=== PATIENT | male | born 1955 | race Caucasian/White ===

== ENCOUNTER → 2020-06-27 15:36 | Outpatient (CLI) | payer MEDICARE, OTHER, SELFPAY ==
[2020-06-27] MEDS: COVID-19 VACC, Ad26(JANSSEN)/PF 0.5 ML IM (16:11)
== END ==
PROVIDERS: Visit Provider Internal Medicine
DX: Z23 Encounter for immunization (principal)
CPT/HCPCS: 0031A; 91303

== ENCOUNTER → 2023-01-29 07:55 | Outpatient (CLI) | payer MEDICARE, OTHER, SELFPAY | PROVIDERS: Visit Provider Physician Assistant | DX: M54.50 Low back pain, unspecified (principal) | CPT/HCPCS: 87086 ==

== ENCOUNTER → 2023-02-06 08:09 | Outpatient (CLI) | payer MEDICARE, OTHER, SELFPAY ==
[2023-02-06 08:53] LABS: Add Manual Diff / Slide Review NO; Basophils Absolute Auto 100 /uL (0-100); Basophils Percent Auto 0.9 % (0-2); Eosinophils Absolute Auto 200 /uL (0-450); Eosinophils Percent Auto 2.6 % (2-4); Hematocrit 43.1 % (41-53); Hemoglobin 14.8 g/dL (13.5-17.5); Lymphocytes Absolute Auto 1600 /uL (1100-4500); Lymphocytes Percent Auto 21.2 % (25-40); Mean Corpuscular HGB Conc 34.3 % (30-36); Mean Corpuscular Hemoglobin 29.5 PG (26-34); Monocytes Absolute Auto 500 /uL (0-900); Monocytes Percent Auto 6.3 % (3-14); Neutrophils Absolute Auto 5200 /uL (1500-7000); Platelet Count 263 X10^3/uL (150-400); Red Blood Cell Count 5.02 X10^6/uL (4.5-5.9); Red Cell Distribution Width 13.4 % (11.6-14.8); White Blood Cell Count 7.6 X10^3/uL (4.5-11.0)
[2023-02-06 09:13] LABS: Alanine Aminotransferase 27 IU/L (<50); Albumin 4.5 g/dL (3.5-5.0); Albumin Globulin Ratio 1.5 (1.0-2.8); Alkaline Phosphatase 92 U/L (38-126); Aspartate Aminotransferase 24 IU/L (17-59); BUN Creatinine Ratio 18.8 (6-22); Bilirubin Total 1.7 mg/dL (0.2-1.3); Blood Urea Nitrogen 16 mg/dL (9-20); Calcium 9.7 mg/dL (8.4-10.2); Carbon Dioxide 26 mmol/L (22-32); Chloride 102 mmol/L (98-107); Cholesterol 181 mg/dL (140-199); Estimated Glomerular Filt Rate > 60 mL/min (>60); Glucose 120 mg/dL (80-110); HDL Cholesterol 58 mg/dL (40-60); HEMOLYSIS < 15 (0-50); LDL Cholesterol Calculated 103 mg/dL (<100); Potassium 4.5 mmol/L (3.4-5.1); Sodium 138 mmol/L (137-145); Total Protein 7.5 g/dL (6.3-8.2); Triglycerides 101 mg/dL (35-150)
[2023-02-06 09:15] LABS: Hemoglobin A1C% w Est Avg Glu 6.1 % (4.0-6.0)
[2023-02-06 09:49] LABS: Thyroid Stimulating Hormone 0.528 uIU/mL (0.47-4.68)
[2023-02-06 10:27] LABS: Appearance Urine UA CLEAR; Bilirubin Urine UA NEGATIVE (NEGATIVE); Glucose Urine UA NEGATIVE (Negative); Ketones Urine UA NEGATIVE (NEGATIVE); Leukocyte Esterase Urine UA NEGATIVE (NEGATIVE); Nitrite Urine UA NEGATIVE (Negative); Occult Blood Urine UA TRACE-INTACT (Negative); Protein Urine UA NEGATIVE (Negative); pH Urine UA 6.5 (4.5-8.0)
[2023-02-06 10:44] LABS: Bacteria Urine Occasional (0-1); Color Urine UA YELLOW; Culture Indicated Urine Cult Not Indicated; Mucus Urine 1+ (Negative); RBC Urine None Seen (0-5/HPF); Squamous Epithelial Cell Urine None Seen (0-5/HPF); WBC Urine 0-1/HPF (0-5/HPF)
[2023-02-07 16:15] LABS: Hep C Virus Ab w/Reflex Quant NEGATIVE s/c (NEGATIVE)
== END ==
PROVIDERS: PCP Family Medicine; Referring Provider Family Medicine; Visit Provider Family Medicine
DX: E05.00 Thyrotoxicosis with diffuse goiter without thyrotoxic crisis or storm (principal); Z00.00 Encounter for general adult medical examination without abnormal findings; Z85.850 Personal history of malignant neoplasm of thyroid; Z13.1 Encounter for screening for diabetes mellitus; Z11.59 Encounter for screening for other viral diseases; M54.9 Dorsalgia, unspecified; Z13.6 Encounter for screening for cardiovascular disorders; R03.0 Elevated blood-pressure reading, without diagnosis of hypertension; R31.9 Hematuria, unspecified; R73.03 Prediabetes
CPT/HCPCS: 80053; 80061; 81001; 83036; 84443; 85025; 86803

== ENCOUNTER → 2023-02-08 06:35 | Outpatient (CLI) | payer MEDICARE, OTHER, SELFPAY ==
--- NOTE | 2023-02-08 06:37 | DI.RAD.S_ITS ---
PROCEDURE: XR KUB INDICATIONS: R/O kidney stone TECHNIQUE: One view of the abdomen acquired. COMPARISON: [facility], , US ABDOMEN COMPLETE, 02/08/2023, 6:44. FINDINGS: Surgical changes and devices: None. Bowel: Scattered small bowel and colonic gas. No dilated loops of bowel seen. Soft tissues: No kidney stones identified. No suspicious abdominal calcifications. Visualized solid organ contours appear normal in size. Bones: No suspicious bony lesions. IMPRESSION: No kidney stone identified. If clinically indicated consider CT KUB for further evaluation. Dictated by: Gabriel Egan M.D. on 02/08/2023 at 8:57 Approved by: Gabriel Egan M.D. on 02/08/2023 at 8:58
--- NOTE | 2023-02-08 06:37 | DI.US.S_ITS ---
PROCEDURE: US ABDOMEN COMPLETE INDICATIONS: r/o Kidney stone, AAA, Gallbladder TECHNIQUE: Real-time scanning was performed of the abdominal and retroperitoneal organs, with image documentation. COMPARISON: [facility], CR, XR KUB, 02/08/2023, 6:40. FINDINGS: Liver: Liver is normal in size and homogeneous in echotexture. Hepatic cyst adjacent to the gallbladder measuring 0.8 cm. Gallbladder: Nondilated. Multiple gallstones. Possible gallbladder polyp on the nondependent gallbladder wall measuring 0.4 cm. Normal gallbladder wall thickness. No pericholecystic fluid. Negative sonographic Romero's sign. Biliary ducts: Intrahepatic bile ducts are non-dilated. Extrahepatic bile duct caliber is not well seen due to overlying bowel gas. Pancreas: Not well seen due to overlying bowel gas. Spleen: Spleen is normal in size and homogeneous in echotexture. Measures 10.3 cm. Kidneys: Kidneys are normal in size and echotexture. Right kidney measures 11.6 cm long; left kidney measures 11.2 cm long. No hydronephrosis or nephrolithiasis. No solid masses. Aorta: Visualized aorta is normal in caliber at less than 3 cm. Iliacs: Proximal common iliac arteries are normal in caliber at less than 2.5 cm. IVC: Intrahepatic inferior vena cava is patent. Miscellaneous: No free abdominal fluid. IMPRESSION: Evaluation is somewhat limited due to bowel gas. The CBD and pancreas are not well seen. 1. No acute cholecystitis. Multiple gallstones. Possible gallbladder polyp measuring 0.4 cm. No follow-up imaging is required for this possible small polyp. 2. No hydronephrosis. No kidney stones identified. 3. No abdominal aortic aneurysm. Dictated by: Gabriel Egan M.D. on 02/08/2023 at 9:06 Approved by: Gabriel Egan M.D. on 02/08/2023 at 9:09
== END ==
PROVIDERS: PCP Family Medicine; Referring Provider Family Medicine; Visit Provider Family Medicine
DX: N20.0 Calculus of kidney (principal); R31.9 Hematuria, unspecified; K80.20 Calculus of gallbladder without cholecystitis without obstruction; M54.9 Dorsalgia, unspecified
CPT/HCPCS: 74018; 76700

== ENCOUNTER → 2023-02-26 08:41 | Outpatient (CLI) | payer MEDICARE, OTHER, SELFPAY ==
[2023-03-05 12:30] LABS: Ca oxalate monohydr 100 % (.); Size 4x4 mm (.)
== END ==
PROVIDERS: PCP Family Medicine; Visit Provider Family Medicine
DX: N20.0 Calculus of kidney (principal); M54.9 Dorsalgia, unspecified
CPT/HCPCS: 82365

== ENCOUNTER → 2023-02-26 08:52 | Outpatient (CLI) | payer MEDICARE, OTHER, SELFPAY ==
[2023-02-26 10:38] LABS: Appearance Urine UA CLEAR; Bilirubin Urine UA NEGATIVE (NEGATIVE); Color Urine UA YELLOW; Glucose Urine UA NEGATIVE (Negative); Ketones Urine UA NEGATIVE (NEGATIVE); Leukocyte Esterase Urine UA NEGATIVE (NEGATIVE); Nitrite Urine UA NEGATIVE (Negative); Occult Blood Urine UA NEGATIVE (Negative); Protein Urine UA NEGATIVE (Negative); Urobilinogen Urine UA 0.2 E.U./dL (0.2)
[2023-02-26 10:56] LABS: Bacteria Urine None Seen; Culture Indicated Urine Cult Not Indicated; RBC Urine None Seen (0-5/HPF); Squamous Epithelial Cell Urine 0-1 /HPF (0-5/HPF); WBC Urine 0-1/HPF (0-5/HPF)
== END ==
PROVIDERS: PCP Family Medicine; Referring Provider Family Medicine; Visit Provider Family Medicine
DX: R73.03 Prediabetes (principal); N20.0 Calculus of kidney; M54.9 Dorsalgia, unspecified
CPT/HCPCS: 81001; 82365

== ENCOUNTER → 2023-03-16 11:41 | Outpatient (CLI) | payer MEDICARE, OTHER, SELFPAY ==
--- NOTE | 2023-03-16 11:43 | DI.CT.S_ITS ---
PROCEDURE: CT ABDOMEN PELVIS WO CON INDICATIONS: R side back pain, confirmed kidney stone disease TECHNIQUE: Axial sections were acquired from the lung bases to the pubic symphysis. Coronal and sagittal reformats were performed. For radiation dose reduction, the following was used: automated exposure control, adjustment of mA and/or kV according to patient size. COMPARISON: None. FINDINGS: Image quality: Excellent. Lung bases: Unremarkable. Heart: No significant findings. URINARY: Right Kidney: No stones or hydronephrosis. Right Ureter: No hydroureter. Left Kidney: A 2 mm calculus is present in the midpole of the left kidney. Left Ureter: No hydroureter. Bladder: Normal wall thickness. No stones. ABDOMEN: Liver: No contour-deforming solid mass. Gallbladder: Multiple subcentimeter calcified stones are present in the gallbladder fundus. No gallbladder wall thickening or pericholecystic fluid. Biliary ducts: No biliary dilation. Pancreas: No ductal dilation. Spleen: Size is within normal limits. Adrenal Glands: No adrenal nodules. Stomach and Bowel: Normal colonic caliber, without significant wall thickening. There are scattered sigmoid diverticula. No evidence for diverticulitis. The appendix is thin walled and gas filled. Peritoneum: No abnormal intraperitoneal fluid. No free air. Ventral Wall: No hernia. Abdominal Nodes: No enlarged retroperitoneal or mesenteric lymph nodes. Vessels: Aorta and inferior vena cava are normal in size. There are scattered atheromatous calcifications throughout the aorta and iliac arteries bilaterally. PELVIS: Pelvic Organs: Unremarkable. Pelvic Nodes: Unremarkable. Miscellaneous: No inguinal hernias are seen. Bones: Unremarkable. IMPRESSION: 1. Nonobstructing left nephrolithiasis. 2. No hydronephrosis, hydroureter, or ureterolithiasis. 3. No acute intra-abdominal findings. Normal appendix. Diverticulosis. No acute diverticulitis. Dictated by: Ting Garcia M.D. on 03/17/2023 at 19:04 Approved by: Ting Garcia M.D. on 03/17/2023 at 19:07
== END ==
PROVIDERS: PCP Family Medicine; Referring Provider Family Medicine; Visit Provider Family Medicine
DX: N20.0 Calculus of kidney (principal); M54.9 Dorsalgia, unspecified; K57.30 Diverticulosis of large intestine without perforation or abscess without bleeding
CPT/HCPCS: 74176

== ENCOUNTER → 2023-07-25 06:41 | Outpatient (CLI) | payer MEDICARE, OTHER, SELFPAY ==
--- NOTE | 2023-07-25 06:42 | DI.US.S_ITS ---
PROCEDURE: US ABD AORTA ANEURYSM SCREEN INDICATIONS: Treat and Eval TECHNIQUE: Real time scanning was performed of the aorta and iliac arteries, with image documentation. COMPARISON: [facility], CT, CT ABDOMEN PELVIS WO CON, 03/16/2023, 11:58. FINDINGS: Aorta: Proximal aortic diameter not well seen secondary to bowel gas. Mid-aorta measures 1.6 cm. Distal aortic diameter is 1.3 cm. Scattered atherosclerotic plaque. Iliac arteries: Right common iliac artery measures 1.1 cm. Left common iliac artery measures 0.9 cm. IMPRESSION: 1. Proximal abdominal aorta is not well seen secondary to bowel gas. 2. Mid and abdominal aorta are normal in caliber. 3. Bilateral common iliac arteries are normal in caliber, where visualized. Vascular incidental findings followup recommendations: ACR White Paper AAA imaging followup intervals: AAA defined as 3.0 cm or more luminal diameter. * 2.5-2.9 cm (ectasia): 5 year followup. * 3.0-3.4 cm: 3 year followup. * 3.5-3.9 cm: 3 year followup. * 4.0-4.4 cm: 1 year followup. * 4.5-4.9 cm: 6 month followup. Consider surgery/endovascular Rx. * 5.0-5.5 cm: 3-6 month followup. Consider surgery/endovascular Rx. Dictated by: Francisco Dubose M.D. on 07/25/2023 at 9:41 Approved by: Francisco Dubose M.D. on 07/25/2023 at 9:44
== END ==
PROVIDERS: PCP Family Medicine; Referring Provider Family Medicine; Visit Provider Family Medicine
DX: Z87.891 Personal history of nicotine dependence (principal); Z13.6 Encounter for screening for cardiovascular disorders
CPT/HCPCS: 76706

== ENCOUNTER → 2024-01-03 09:59 | Outpatient (CLI) | payer MEDICARE, OTHER, SELFPAY ==
[2024-01-03 10:38] LABS: Add Manual Diff / Slide Review NO; Basophils Absolute Auto 0 /uL (0-100); Basophils Percent Auto 0.6 % (0-2); Eosinophils Absolute Auto 200 /uL (0-450); Eosinophils Percent Auto 2.4 % (2-4); Hematocrit 43.4 % (41-53); Hemoglobin 14.8 g/dL (13.5-17.5); Lymphocytes Absolute Auto 1600 /uL (1100-4500); Lymphocytes Percent Auto 21.3 % (25-40); Mean Corpuscular Hemoglobin 30.1 PG (26-34); Mean Corpuscular Volume 88.5 fL (80-100); Monocytes Absolute Auto 600 /uL (0-900); Monocytes Percent Auto 7.4 % (3-14); Neutrophils Absolute Auto 5100 /uL (1500-7000); Neutrophils Percent Auto 68.3 % (50-75); Platelet Count 285 X10^3/uL (150-400); Red Blood Cell Count 4.91 X10^6/uL (4.5-5.9); Red Cell Distribution Width 13.6 % (11.6-14.8); White Blood Cell Count 7.5 X10^3/uL (4.5-11.0)
[2024-01-03 10:56] LABS: Alanine Aminotransferase 35 IU/L (<50); Albumin 4.3 g/dL (3.5-5.0); Albumin Globulin Ratio 1.5 (1.0-2.8); Alkaline Phosphatase 97 U/L (38-126); Aspartate Aminotransferase 31 IU/L (17-59); BUN Creatinine Ratio 17.2 (6-22); Bilirubin Total 0.9 mg/dL (0.2-1.3); Blood Urea Nitrogen 15 mg/dL (9-20); Calcium 9.2 mg/dL (8.4-10.2); Carbon Dioxide 28 mmol/L (22-32); Chloride 106 mmol/L (98-107); Estimated Glomerular Filt Rate > 60 mL/min (>60); Globulin 2.8 g/dL (1.7-4.1); Glucose 146 mg/dL (80-110); HEMOLYSIS < 15 (0-50); Potassium 4.9 mmol/L (3.4-5.1); Sodium 141 mmol/L (137-145); Total Protein 7.1 g/dL (6.3-8.2)
[2024-01-03 11:26] LABS: Prostate Specific Antigen Scrn 4.31 ng/mL (0.1-4.0)
== END ==
PROVIDERS: PCP Family Medicine; Referring Provider Family Medicine; Visit Provider Family Medicine
DX: R03.0 Elevated blood-pressure reading, without diagnosis of hypertension (principal); R73.03 Prediabetes; Z12.5 Encounter for screening for malignant neoplasm of prostate
CPT/HCPCS: 36415; 80053; 83036; 85025; G0103

== ENCOUNTER → 2024-06-14 09:12 | Outpatient (CLI) | payer MEDICARE, OTHER, SELFPAY ==
[2024-06-14 09:53] LABS: Influenza A - CEPHEID Flu A NEGATIVE (NEGATIVE); Influenza B - CEPHEID Flu B NEGATIVE (NEGATIVE); Respiratory Syncytial Virus Negative (Negative)
[2024-06-14 10:11] LABS: COVID-19 CEPHEID 4-PLEX PCR Negative (Negative)
== END ==
PROVIDERS: PCP Family Medicine; Visit Provider Physician Assistant Surgical
DX: R05.1 Acute cough (principal)
CPT/HCPCS: 0241U

== ENCOUNTER → 2024-06-14 09:33 | Outpatient (CLI) | payer MEDICARE, OTHER, SELFPAY ==
--- NOTE | 2024-06-14 09:35 | DI.RAD.S_ITS ---
PROCEDURE: XR CHEST 2V INDICATIONS: Cough, SOB TECHNIQUE: 2 views of the chest were acquired. COMPARISON: None. FINDINGS: Surgical changes and devices: None. Lungs and pleura: Lungs are clear. No pleural effusions or pneumothorax. But like atelectasis or scarring in the right Mediastinum: Mediastinal contours are normal. Heart size is normal. Bones and chest wall: No suspicious bony abnormalities. Soft tissues appear unremarkable. IMPRESSION: No acute cardiopulmonary abnormality is seen. Approved by: Rakan Borden M.D. on 06/14/2024 at 9:29
== END ==
PROVIDERS: PCP Family Medicine; Referring Provider Physician Assistant Surgical; Visit Provider Physician Assistant Surgical
DX: R05.1 Acute cough (principal)
CPT/HCPCS: 0241U; 71046

== ENCOUNTER → 2024-08-31 08:11 | Outpatient (CLI) | payer MEDICARE, OTHER, SELFPAY ==
[2024-08-31 09:33] LABS: Cholesterol 201 mg/dL (140-199); HDL Cholesterol 56 mg/dL (40-60); LDL Cholesterol Calculated 135 mg/dL (<100); Triglycerides 50 mg/dL (35-150)
== END ==
PROVIDERS: PCP Family Medicine; Referring Provider Family Medicine; Visit Provider Family Medicine
DX: Z13.220 Encounter for screening for lipoid disorders (principal); Z12.5 Encounter for screening for malignant neoplasm of prostate; R73.03 Prediabetes; R97.20 Elevated prostate specific antigen [PSA]
CPT/HCPCS: 36415; 80061; G0103

== ENCOUNTER → 2024-11-12 08:33 | Outpatient (CLI) | payer MEDICARE, OTHER, SELFPAY | PROVIDERS: PCP Family Medicine; Visit Provider Urology | DX: R39.9 Unspecified symptoms and signs involving the genitourinary system (principal); R97.20 Elevated prostate specific antigen [PSA]; N40.1 Benign prostatic hyperplasia with lower urinary tract symptoms; Z87.442 Personal history of urinary calculi | CPT/HCPCS: 51798; 81002; 87086; 99214 ==

== ENCOUNTER → 2025-02-12 09:40 | Outpatient (CLI) | payer MEDICARE, OTHER, SELFPAY ==
--- NOTE | 2025-02-12 09:41 | DI.RAD.S_ITS ---
PROCEDURE: XR FOOT LT MIN 3V INDICATIONS: foot/toe pain TECHNIQUE: 3 views of the foot were acquired. COMPARISON: None. FINDINGS: Bones: No fractures or dislocations. 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 No suspicious bony lesions. Soft tissues: No tibiotalar joint effusion. Achilles tendon appears normal. 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 Dictated by: Jose Ramon Parsons M.D. on 02/13/2025 at 14:14 Approved by: Jose Ramon Parsons M.D. on 02/13/2025 at 14:14
== END ==
PROVIDERS: PCP Family Medicine; Referring Provider Family Medicine; Visit Provider Family Medicine
DX: M19.072 Primary osteoarthritis, left ankle and foot (principal); M79.675 Pain in left toe(s)
CPT/HCPCS: 73630